=== PATIENT | female | born 1990 | race Caucasian/White ===

== ENCOUNTER 2018-03-22 12:34 | Inpatient (IN) | payer BC, OTHER ==
[2018-03-23] MEDS ORDERED: HYDROcodone/Acetaminophen 5/325 mg Tablet PO PRN ×3 (03:36→18:06)
[2018-03-23] MEDS ORDERED: Misoprostol 200 MCG TAB PR PRN (03:36)
[2018-03-23] MEDS ORDERED: Carboprost 250 MCG/ML AMP IM PRN (03:36)
[2018-03-23] MEDS ORDERED: Diphenoxylate HCl/Atropine Tablet PO PRN (03:36)
[2018-03-23] MEDS ORDERED: Acetaminophen 500 MG TAB PO PRN (03:36)
[2018-03-23] MEDS ORDERED: Lidocaine 1% (PF) 30 ML VIAL SC PRN (03:36)
[2018-03-23] MEDS ORDERED: Ibuprofen 800 MG TAB PO PRN (03:36)
[2018-03-23] MEDS ORDERED: Promethazine HCl 25 MG/ML VIAL IM PRN (03:36)
[2018-03-23] MEDS ORDERED: Ondansetron HCl/PF 4 MG/2 ML Vial IVP PRN ×2 (03:36→18:06)
[2018-03-23] MEDS ORDERED: NS w/ Oxytocin 10 units 500 ML IV SCH (03:36)
[2018-03-23] MEDS ORDERED: NS / Oxytocin 40 units/1000ml 1,000 ML IV PRN (03:36)
[2018-03-23] MEDS ORDERED: Methylergonovine 0.2 MG/ML VIAL IM PRN (03:36)
[2018-03-23 04:19] VITALS: BMI 32.4
[2018-03-23] MEDS: Lactated Ringer's 1,000 ML IV SCH ×3 (04:50→14:05)
[2018-03-23 05:29] LABS: Hemoglobin 12.7 g/dL (12.0-16.0); Mean Corpuscular HGB CONC 35.6 g/dL (32.0-36.0); Mean Corpuscular Hemoglobin 31.6 pg (27.0-31.0); Mean Corpuscular Volume 88.7 fL (78.0-98.0); Mean Platelet Volume 6.9 fL (7.4-10.4); Platelet Count 330 thou/uL (130-400); RBC Distribution Width 13.7 % (11.5-14.5); Red Blood Cell (RBC) Count 4.02 mill/uL (4.20-5.40); White Blood Cell (WBC) Count 12.2 thou/uL (4.8-10.8)
[2018-03-23] MEDS: Misoprostol 100 MCG TAB VAG SCH ×5 (05:42→17:06)
[2018-03-23 06:01] LABS: Syphilis Antibody Nonreactive (Nonreactive); Syphilis Antibody Index 0.04 S/CO (<1.00 Non-Reactive)
[2018-03-23 06:02] LABS: HBSAg Index 0.17 S/CO (0-0.99); Hep B Surf Ag Non-Reactive S/CO (NonReactive)
--- NOTE | 2018-03-23 07:55 | PDOC.LDHP ---
Labor and Delivery H&P Chief complaint: scheduled induction HPI: 28yo at 39w4d by LMP for elective IOL, s/p cytotec x 1, not having painful ctx. Current gestational age (weeks): 39 Due date: 03/26/18 Dating criteria: last menstrual period Grav: 3 Para: 1 Current complications: none Abnormal US findings: No Past Medical History: hypothyroid on meds Current medications: pre-virgen vitamins, other (levothyroxine) Previous surgical history: none Allergies/Adverse Reactions: Allergies Allergy/AdvReac Type Severity Reaction Status Date / Time No Known Drug Allergies Allergy Verified 03/23/18 04:06 Social history: none - Physical Exam Vital signs reviewed and normal: yes General: NAD Heart: RRR Lungs: CTAB Abdomen: gravid Extremeties: no edema FHT: category 1 [place] contractions every: rare - Vaginal Exam cm dilated: 2 Effacement: 75% Station: -2 (arom clear) - OB Labs Blood type: A RH: negative Antibody Screen: positive (anti d) HIV: negative RPR: negative HEPSAg: negative 1 hour GCT: negative GBS: negative Urine drug screen: negative Rubella: immune - Assessment L&D Assessment: elective induction at term - Plan Plan: admit to L&D, labor augmentation if indicated, informed consent obtained, anesthesia consult for pain management
[2018-03-23] MEDS ORDERED: Bupivacaine/Epinephrine 0.25% 30 ML VIAL ONE (09:00)
[2018-03-23] MEDS: Butorphanol Tartrate 1 MG/ML VIAL SLOW IVP PRN ×2 (09:47→11:00)
[2018-03-23] MEDS ORDERED: DISCONTINUE ALL PREVIOUS NARCOTICS FS SCH (12:15)
[2018-03-23] MEDS ORDERED: Bupivacaine 0.5% 20 ML, fentaNYL Citrate/PF 400 MCG in Sodium Chloride 0.9% 72 ML EPIDURAL SCH (12:15)
[2018-03-23] MEDS ORDERED: Lactated Ringer's 500 ML IV PRN (13:37)
[2018-03-23] MEDS ORDERED: ePHEDrine/0.9% NaCl/PF SYRINGE 50 mg/10 ml SLOW IVP PRN (13:37)
[2018-03-23] MEDS ORDERED: Naloxone HCl 0.4 mg/ml Vial IVP PRN ×2 (13:37)
[2018-03-23] MEDS ORDERED: Eucerin (Mineral Oil/Petrolatum,White) 30 gm Jar TOP PRN (13:37)
[2018-03-23] MEDS ORDERED: Communication Order-Pharmacy FS SCH (13:45)
[2018-03-23] MEDS ORDERED: fentaNYL Citrate/PF 400 MCG, Bupivacaine 0.5% 20 ML in Sodium Chloride 0.9% 72 ML EPIDURAL SCH (13:45)
--- NOTE | 2018-03-23 16:58 | PDOC.OPDEL ---
OB Operative/Delivery Note Delivery Dr/Surgeon: Sanchez Assist: n/a Pre-Delivery Diagnosis: elective induction Procedure/Post Delivery Dx: spontaneous vaginal delivery Weeks gestation: 39 Anesthesia: epidural - Findings A Sex: male - 1 min: 8 - 5 min: 9 - Additional Findings/Plan Placenta delivered: spontaneous Repaired Obstetrical Laceration: none Estimated blood loss: 200 qbl pending Compilations/Other Findings: NC x 1 tight delivered through Post delivery plan: routine recovery
[2018-03-23] MEDS ORDERED: Preparation H Ointment 28 GM TUBE PR PRN (18:06)
[2018-03-23] MEDS ORDERED: Milk Of Magnesia 30 ML UDCUP PO PRN (18:06)
[2018-03-23] MEDS ORDERED: diphenhydrAMINE 25 MG CAP PO PRN (18:06)
[2018-03-23] MEDS ORDERED: NS / Oxytocin 40 units/1000ml 1,000 ML IV SCH (18:06)
[2018-03-23] MEDS ORDERED: Lanolin Ointment 7 GM TUBE TOP PRN (18:06)
[2018-03-23] MEDS ORDERED: Bisacodyl 10 MG SUPP PR PRN (18:06)
[2018-03-23] MEDS ORDERED: Benzocaine/Menthol 20-0.5% 60 ML CAN TOP PRN (18:06)
[2018-03-23] MEDS ORDERED: Methylergonovine 0.2 MG/ML VIAL ONE (18:27)
[2018-03-23] MEDS ORDERED: Ibuprofen 800 MG TAB PO SCH ×2 (20:00→22:00)
[2018-03-23] MEDS: Ibuprofen 800 MG TAB PO SCH (20:25)
[2018-03-23] MEDS: Docusate Calcium (SURFAK) 240 MG CAP PO SCH (21:37)
--- NOTE | 2018-03-24 02:11 | PDOC.PP ---
Post Progress Note Post Day #: 1 Subjective: Doing well PO intake tolerated: yes Flatus: yes Ambulation: yes Vital Signs (12 hours) Temp Pulse Resp BP Pulse Ox 03/24/18 00:32 98.6 F 74 18 116/74 99 03/23/18 22:33 98.1 F 67 20 115/67 99 03/23/18 21:38 98.1 F 73 18 102/62 97 03/23/18 20:35 97.7 F 72 20 100/64 98 Weight Weight 183 lb - Physical Examination General: NAD Cardiovascular: no m/r/g Respiratory: clear to auscultation bilaterally Abdominal: + bowel sounds, lochia, no distention, appropriately TTP Extremities: negative homans (B) Neurological: no gross focal deficits Psychiatric: A&Ox3, normal affect Result Diagrams: 03/23/18 04:50 Additional Labs: Post Labs Blood Type A NEGATIVE 03/23/18 04:50 Hep Bs Antigen Non-Reactive S/CO (NonReactive) 03/23/18 04:50 (1) Hypothyroidism affecting in third trimester Code(s): O99.283 - ENDO, NUTRITIONAL AND METAB DISEASES COMP PREG, THIRD TRI; E03.9 - HYPOTHYROIDISM, UNSPECIFIED Status: Acute (2) Term delivered Code(s): O80 - ENCOUNTER FOR FULL-TERM UNCOMPLICATED DELIVERY Status: Acute - Assessment/Plan PPD 1 s/p doing well. has thyroid medication with her for her hypothyroidism...ok to continue. Patient ok with observation today until PPD2. BPs ok.
[2018-03-24] MEDS: Ibuprofen 800 MG TAB PO SCH ×3 (04:13→21:46)
[2018-03-24] MEDS: Levothyroxine 175 MCG TAB PO SCH (06:23)
[2018-03-24] MEDS ORDERED: Adacel (T-DAP) 0.5 ML VIAL IM ONE (09:00)
[2018-03-24] MEDS: Ferrous Sulfate 325 MG TAB PO SCH ×2 (09:01→14:07)
[2018-03-24] MEDS: Prenatal Vitamin 1 TAB PO SCH (09:55)
[2018-03-24] MEDS: Docusate Calcium (SURFAK) 240 MG CAP PO SCH ×2 (09:55→21:46)
[2018-03-24 21:56] VITALS: BP 103/54; TEMP 98.2
[2018-03-25] MEDS: Ibuprofen 800 MG TAB PO SCH (06:14)
[2018-03-25] MEDS: Levothyroxine 175 MCG TAB PO SCH (06:15)
[2018-03-25] MEDS: Prenatal Vitamin 1 TAB PO SCH (08:47)
[2018-03-25] MEDS: Ferrous Sulfate 325 MG TAB PO SCH (08:47)
[2018-03-25] MEDS: Docusate Calcium (SURFAK) 240 MG CAP PO SCH (08:48)
--- NOTE | 2018-03-25 10:33 | DIS ---
DATE OF ADMISSION: 03/23/2018 DATE OF DISCHARGE: 03/27/2018 ADMITTING DIAGNOSIS: Elective induction of labor. DISCHARGE DIAGNOSIS: Elective induction of labor. PROCEDURE: Term spontaneous vaginal delivery. HOSPITAL COURSE: The patient is a 28-year-old female, who presented to labor and delivery at 3 9 weeks and 4 days for an elective induction of labor. Her labor course resulted in an uncomplicated term spontaneous vaginal delivery. For complete details, please refer to the delivery note. Her po stpartum course has been uncomplicated. Today is day #2, the patient reports this morning that she is eating, tolerating p.o., voiding on her own, having decreased lochia and good pain contr ol. Most recent vital signs has a temperature of 98.2, pulse of 83, respiratory rate of 18, satting 97% on room air and has a blood pressure of 103/54. The patient will be discharged to home with ibup rofen for pain control. She has instructions to follow up with her primary OB, Dr. Bradford in 6 week s. She also has instructions to seek medical attention sooner if she experiences fever, increasing p ain, or bleeding.
== END 2018-03-25 12:25 | disposition home or self-care (01) | DRG 775 ==
LOC: L&D 03-23 03:28 → 3SW 03-23 20:48
PROVIDERS: ADMIT Student in an Organized Health Care Education/Training Program; ATTEND Student in an Organized Health Care Education/Training Program
PROC: 10E0XZZ Delivery of Products of Conception, External Approach (ICD-10-PCS; principal; 2018-03-23)
DX: O69.81X0 Labor and delivery complicated by cord around neck, without compression, not applicable or unspecified (principal); Z3A.39 39 weeks gestation of pregnancy; Z37.0 Single live birth; O99.284 Endocrine, nutritional and metabolic diseases complicating childbirth; E03.9 Hypothyroidism, unspecified
CPT/HCPCS: 36415; 51702; 85027; 85461; 86780; 86850; 86870; 86900; 86901; 87340; 90384; 96372; J0595; J2001; J2210; J2405; J3010; J3490; J7050

== ENCOUNTER 2019-06-17 05:30 | Inpatient (IN) | payer BC ==
[2019-06-17 08:22] VITALS: BMI 33.6
[2019-06-17] MEDS ORDERED: Acetaminophen 500 MG TAB PO PRN (08:25)
[2019-06-17] MEDS ORDERED: Diphenoxylate HCl/Atropine Tablet PO PRN (08:25)
[2019-06-17] MEDS ORDERED: Lidocaine 1% (PF) 30 ML VIAL SC PRN (08:25)
[2019-06-17] MEDS ORDERED: hydrALAZINE 20 MG/ML VIAL SLOW IVP PRN (08:25)
[2019-06-17] MEDS ORDERED: Ibuprofen 800 MG TAB PO PRN (08:25)
[2019-06-17] MEDS ORDERED: Methylergonovine 0.2 MG/ML VIAL IM PRN (08:25)
[2019-06-17] MEDS ORDERED: Misoprostol 200 MCG TAB PR PRN (08:25)
[2019-06-17] MEDS ORDERED: Carboprost 250 MCG/ML AMP IM PRN (08:25)
[2019-06-17] MEDS ORDERED: Promethazine HCl 25 MG/ML VIAL IM PRN ×2 (08:25→15:10)
[2019-06-17] MEDS ORDERED: NS / Oxytocin 40 units/1000ml 1,000 ML IV PRN (08:25)
[2019-06-17] MEDS ORDERED: NS w/ Oxytocin 10 units 500 ML IV SCH (08:25)
[2019-06-17] MEDS ORDERED: Ondansetron PF 4 MG/2 ML Vial IVP PRN ×2 (08:25→15:10)
[2019-06-17] MEDS ORDERED: HYDROcodone/Acetaminophen 5/325 mg Tablet PO PRN (08:25)
[2019-06-17] MEDS ORDERED: Butorphanol Tartrate 1 MG/ML VIAL SLOW IVP PRN (08:25)
[2019-06-17 08:43] LABS: Hemoglobin 12.8 g/dL (12.0-16.0); Mean Corpuscular HGB CONC 34.8 g/dL (32.0-36.0); Mean Corpuscular Volume 88.9 fL (78.0-98.0); Mean Platelet Volume 6.3 fL (7.4-10.4); Platelet Count 335 thou/uL (130-400); Red Blood Cell (RBC) Count 4.14 mill/uL (4.20-5.40); White Blood Cell (WBC) Count 12.6 thou/uL (4.8-10.8)
[2019-06-17 09:27] LABS: HBSAg Index 0.32 S/CO (0-0.99); Hep B Surf Ag Non-Reactive S/CO (NonReactive); Syphilis Antibody Nonreactive (Nonreactive); Syphilis Antibody Index 0.05 S/CO (<1.00 Non-Reactive)
[2019-06-17] MEDS ORDERED: ePHEDrine/0.9% NaCl/PF SYRINGE 50 mg/10 ml ONE (10:42)
[2019-06-17] MEDS ORDERED: Bupivacaine 0.25% HCL 30 ML VIAL ONE (10:42)
--- NOTE | 2019-06-17 12:43 | PDOC.LDHP ---
Labor and Delivery H&P Chief complaint: scheduled induction HPI: 29yo at 39w2d by LMP here for elective IOL. s/p AROM earlier this am, clear fluid. Some minimal variability on tracing. Current gestational age (weeks): 39 Due date: 06/22/19 Dating criteria: last menstrual period Grav: 4 Para: 2 Current complications: none Abnormal US findings: No Past Medical History: hypothyroidsm Current medications: pre-virgen vitamins, other (levoth) Previous surgical history: other (tonsills) Allergies/Adverse Reactions: Allergies Allergy/AdvReac Type Severity Reaction Status Date / Time No Known Drug Allergies Allergy Verified 03/23/18 04:06 Social history: none - Physical Exam Vital signs reviewed and normal: yes General: NAD Heart: RRR Lungs: CTAB Abdomen: gravid Extremeties: no edema FHT: category 2, absent or minimal variables [place] contractions every: 3-4min - Vaginal Exam cm dilated: 4 Effacement: 75% Station: -2 - OB Labs Blood type: A RH: negative Antibody Screen: positive HIV: negative RPR: negative HEPSAg: negative 1 hour GCT: negative GBS: negative Urine drug screen: negative Rubella: immune - Assessment L&D Assessment: elective induction at term - Plan Plan: admit to L&D, labor augmentation if indicated, informed consent obtained, anesthesia consult for pain management, other (resuscitation for minimal variability, no decels, intermittent accels noted.)
[2019-06-17] MEDS ORDERED: Fentanyl 4 mcg/Bup 0.1% Cadd 100 ML ONE (14:15)
[2019-06-17] MEDS: Lactated Ringer's 1,000 ML IV SCH ×2 (15:00→18:12)
[2019-06-17] MEDS ORDERED: Acetaminophen 325 MG TAB PO PRN (15:10)
[2019-06-17] MEDS ORDERED: Lactated Ringer's 500 ML IV PRN (15:10)
[2019-06-17] MEDS ORDERED: Naloxone HCl 0.4 mg/ml Vial IVP PRN ×2 (15:10)
[2019-06-17] MEDS ORDERED: ePHEDrine/0.9% NaCl/PF SYRINGE 50 mg/10 ml SLOW IVP PRN (15:10)
[2019-06-17] MEDS ORDERED: diphenhydrAMINE 50 MG/ML VIAL IVP PRN (15:10)
[2019-06-17] MEDS ORDERED: Fentanyl 4 mcg/Bupivacaine 0.1% Cassette 100 ML EPIDURAL SCH (15:15)
[2019-06-17] MEDS ORDERED: Communication Order-Pharmacy FS SCH (15:15)
--- NOTE | 2019-06-17 20:58 | PDOC.LDPN ---
Labor & Delivery Progress Note - Subjective Subjective: comfortable - Objective Vital signs reviewed and normal: yes General: NAD Uterine fundus: non tender Dilation: 6 Effacement: 75% Station: -2 FHT: category 2, absent or minimal variables (, decel to 50s x3 min during sve/ scalp stim) [place] contractions every: 4min Resuscitative measures: maternal oxygen, maternal IV fluids, maternal position change Plan: resuscitative measures
[2019-06-17] MEDS ORDERED: NS / Oxytocin 40 units/1000ml 1,000 ML ONE (22:19)
[2019-06-17] MEDS ORDERED: Lidocaine 1% (PF) 30 ML VIAL ONE (22:19)
--- NOTE | 2019-06-17 22:57 | PDOC.OPDEL ---
OB Operative/Delivery Note Delivery Dr/Surgeon: Sanchez Assist: n/a Pre-Delivery Diagnosis: elective induction Procedure/Post Delivery Dx: spontaneous vaginal delivery Weeks gestation: 39 Anesthesia: epidural - Findings A Sex: female - Additional Findings/Plan Placenta delivered: spontaneous Repaired Obstetrical Laceration: none Estimated blood loss: 500 Compilations/Other Findings: NC x 1 tight Post delivery plan: routine recovery
[2019-06-18] MEDS ORDERED: hydrALAZINE 20 MG/ML VIAL SLOW IVP PRN (01:13)
[2019-06-18] MEDS ORDERED: NS / Oxytocin 40 units/1000ml 1,000 ML IV SCH (01:13)
[2019-06-18] MEDS ORDERED: Preparation H Ointment 28 GM TUBE PR PRN (01:13)
[2019-06-18] MEDS ORDERED: Lanolin Ointment 7 GM TUBE TOP PRN (01:13)
[2019-06-18] MEDS ORDERED: Adacel (T-DAP) 0.5 ML SYRINGE IM ONE (01:13)
[2019-06-18] MEDS ORDERED: Ondansetron PF 4 MG/2 ML Vial IVP PRN (01:13)
[2019-06-18] MEDS ORDERED: Milk Of Magnesia 30 ML UDCUP PO PRN (01:13)
[2019-06-18] MEDS ORDERED: HYDROcodone/Acetaminophen 5/325 mg Tablet PO PRN (01:13)
[2019-06-18] MEDS ORDERED: Bisacodyl 10 MG SUPP PR PRN (01:13)
[2019-06-18] MEDS ORDERED: Benzocaine-Menthol 82.5 ML CAN TOP PRN (01:13)
[2019-06-18] MEDS ORDERED: diphenhydrAMINE 25 MG CAP PO PRN (01:13)
[2019-06-18] MEDS: Lactated Ringer's 1,000 ML IV SCH (02:03)
[2019-06-18] MEDS: Ibuprofen 800 MG TAB PO SCH ×3 (04:57→21:48)
[2019-06-18] MEDS: Ferrous Sulfate 325 MG TAB PO SCH ×2 (08:29→17:36)
[2019-06-18] MEDS: Prenatal Vitamin 1 TAB PO SCH (09:19)
[2019-06-18] MEDS: Docusate Calcium (SURFAK) 240 MG CAP PO SCH ×2 (09:19→21:47)
[2019-06-18] MEDS ORDERED: Ondansetron ODT 4 MG TAB SL PRN (15:03)
[2019-06-18] MEDS: HYDROcodone/Acetaminophen 5/325 mg Tablet PO PRN ×2 (15:27→20:24)
--- NOTE | 2019-06-18 16:07 | PDOC.PP ---
Post Progress Note Post Day #: 1 PO intake tolerated: yes Flatus: yes Ambulation: yes Vital Signs (12 hours) Temp Pulse Resp BP Pulse Ox 06/18/19 11:57 98.4 F 75 2 L 107/53 L 06/18/19 08:23 98.2 F 71 20 105/52 L 98 06/18/19 04:57 98.3 F 75 18 103/56 L Weight Weight 190 lb - Physical Examination General: NAD Respiratory: non-labored breathing Abdominal: no distention, appropriately TTP Fundus firm & at: umb Skin: no rash Neurological: no gross focal deficits Psychiatric: normal affect Result Diagrams: 06/17/19 08:35 Additional Labs: Post Labs Blood Type A NEGATIVE 06/17/19 08:35 Hep Bs Antigen Non-Reactive S/CO (NonReactive) 06/17/19 08:35 - Assessment/Plan PPD1 s/p TSVD VSSAF Doing well lochia< menses Rh neg for rhogam screening, RImm Cont PP care, home tomorrow.
[2019-06-19] MEDS: Ibuprofen 800 MG TAB PO SCH ×2 (05:04→14:22)
[2019-06-19 07:56] VITALS: BP 92/51; TEMP 98.6
--- NOTE | 2019-06-19 08:44 | PDOC.PP ---
Post Progress Note Post Day #: 2 Subjective: Pt doing well this am. Minimal lochia. Pt breast feeding with good latch. She is urinating well. No pain or concerns at this time. PO intake tolerated: yes Flatus: yes Ambulation: yes Vital Signs (12 hours) Temp Pulse Resp BP Pulse Ox 06/19/19 07:56 98.6 F 64 20 92/51 L 97 Weight Weight 190 lb - Physical Examination General: NAD Respiratory: non-labored breathing Abdominal: + bowel sounds, lochia, no distention, appropriately TTP Fundus firm & at: 2 cm below umbilicus Extremities: negative homans (B) Skin: no rash Neurological: no gross focal deficits Psychiatric: A&Ox3, normal affect Result Diagrams: 06/17/19 08:35 Additional Labs: Post Labs Blood Type A NEGATIVE 06/17/19 08:35 Hep Bs Antigen Non-Reactive S/CO (NonReactive) 06/17/19 08:35 (1) Term delivered Code(s): O80 - ENCOUNTER FOR FULL-TERM UNCOMPLICATED DELIVERY Status: Acute - Assessment/Plan PPD2 s/p TSVD VSSAF Doing well lochia with minimal lochia well. Rh neg for rhogam screening, RImm Plan for d/c this am. Pt to f/u with our office in 6 weeks. Discharge planning discussed with patient.
[2019-06-19] MEDS: Ferrous Sulfate 325 MG TAB PO SCH (08:59)
[2019-06-19] MEDS: Docusate Calcium (SURFAK) 240 MG CAP PO SCH (09:20)
[2019-06-19] MEDS: Prenatal Vitamin 1 TAB PO SCH (09:20)
== END 2019-06-19 14:45 | disposition home or self-care (01) | DRG 807 ==
LOC: L&D 07:19 → 3SW 06-18 01:46
PROVIDERS: ADMIT Student in an Organized Health Care Education/Training Program; ATTEND Student in an Organized Health Care Education/Training Program
PROC: 10E0XZZ Delivery of Products of Conception, External Approach (ICD-10-PCS; principal; 2019-06-17)
PROC: 10907ZC Drainage of Amniotic Fluid, Therapeutic from Products of Conception, Via Natural or Artificial Opening (ICD-10-PCS; 2019-06-17)
PROC: 3E033VJ Introduction of Other Hormone into Peripheral Vein, Percutaneous Approach (ICD-10-PCS; 2019-06-17)
DX: O76 Abnormality in fetal heart rate and rhythm complicating labor and delivery (principal); Z37.0 Single live birth; Z3A.39 39 weeks gestation of pregnancy; O99.284 Endocrine, nutritional and metabolic diseases complicating childbirth; E03.9 Hypothyroidism, unspecified; O69.1XX0 Labor and delivery complicated by cord around neck, with compression, not applicable or unspecified; Z79.899 Other long term (current) drug therapy; Z79.890 Hormone replacement therapy
CPT/HCPCS: 36415; 51702; 85027; 86780; 86850; 86870; 86900; 86901; 87340; J2001; J2405; J2590; Q0162; S0020

== ENCOUNTER 2020-09-10 04:56 | Emergency (ER) | payer BC ==
[2020-09-10 05:58] LABS: Bacteria/HPF None Seen HPF (None Seen); Bilirubin Negative (Negative); Blood, Urine Negative (Negative); Clarity Clear (Clear); Glucose, Urine (Dipstick) Normal (Negative); Ketone, Urine Negative (Negative); Leukocyte Negative Leu/uL (Negative); Nitrite Negative (Negative); Protein, Urine (Dipstick) 30 mg/dL (Neg-Trace); RBC/HPF 0-3 HPF (0-3); Specific Gravity, Urine 1.033 (1.002-1.036); Squamous Epithelial 0-3 HPF (0-3); Urobilinogen Normal mg/dL (Less than 2); WBC/HPF 0-3 HPF (0-3)
[2020-09-10 05:59] LABS: Mucous/LPF Rare LPF (<2+)
[2020-09-10 06:25] LABS: #Eosinphils 0.4 thou/uL (0.0-0.7); #Lymphocytes 2.4 thou/uL (1.20-3.40); #Monocytes 0.8 thou/uL (0.11-0.59); #Neutrophils 5.9 thou/uL (1.40-6.50); %Basophils 0.5 % (0.0-1.0); %Eosinophils 3.8 % (0.0-10.0); %Lymphocytes 25.3 % (21.0-51.0); %Monocytes 8.9 % (0.0-10.0); %Neutrophils 61.6 % (42.0-75.0); Hemoglobin 12.6 g/dL (12.0-16.0); Mean Corpuscular HGB CONC 32.3 g/dL (32.0-36.0); Mean Corpuscular Hemoglobin 28.8 pg (27.0-31.0); Mean Corpuscular Volume 89.2 fL (78.0-98.0); Mean Platelet Volume 6.4 fL (7.4-10.4); Platelet Count 308 thou/uL (130-400); RBC Distribution Width 12.9 % (11.5-14.5); Red Blood Cell (RBC) Count 4.38 mill/uL (4.20-5.40); White Blood Cell (WBC) Count 9.5 thou/uL (4.8-10.8)
[2020-09-10 06:40] LABS: BHCG - Serum POSITIVE (NEGATIVE); Pregs Control Background? CLEAR/WHITE (CLR/WHITE); Pregs Control Bar Appear? YES (CONTROL BAR)
[2020-09-10 06:56] LABS: ALT (SGPT) 43 U/L (8-55); AST (SGOT) 25 U/L (5-34); Albumin 4.3 g/dL (3.5-5.0); Alkaline Phosphatase 50 U/L (40-110); Anion Gap 13 mmol/L (10-20); BUN (Urea Nitrogen) 10 mg/dL (7.0-18.7); Bilirubin, Total 0.3 mg/dL (0.2-1.2); Calc. Creatinine Clearance 0 mL/min (70-130); Carbon Dioxide 21 mmol/L (22-29); Chloride 106 mmol/L (98-107); Globulin 2.9 g/dL (2.4-3.5); Glucose 105 mg/dL (70-105); Lipase 13 U/L (8-78); Protein, Total 7.2 g/dL (6.0-8.3); Sodium 136 mmol/L (136-145)
--- NOTE | 2020-09-10 09:00 | ULT ---
PRELIMINARY REPORT/[facility]/EMERGENCY AFTER HOURS PROCEDURE: EXAM: US Pelvis, Complete. CLINICAL HISTORY: RLQ pain that radiates to back. nausea TECHNIQUE: Transvaginal and transabdominal pelvic ultrasound (complete) with image documentation. COMPARISON: None FINDINGS: Anteverted uterus measures 8.5 x 4.8 x 6.8 cm. Myometrium is within normal limits. Examination is 6 m m. There is trace free fluid in the dependent pelvis extending to the right adnexa. The ovaries are normal in size and echotexture and demonstrate normal color and spectral Doppler eval uation. Small follicles/functional cysts in both ovaries measure less than 2 cm. The right ovary ashwini ures 3.7 x 1.9 x 1.5 cm. The left ovary measures 4.1 x 2 x 2.9 cm. IMPRESSION: No findings of ovarian torsion. Small follicles in both ovaries measuring less than 2 cm. Trace free fluid in the pelvis is most likely physiologic. ELECTRONICALLY SIGNED BY: Juan Carlos Mcdonald MD Sep 10, 2020 6:16:41 AM [employer] This report is intended for review by the ordering physician only, in accordance of law. If you recei ve this report in error, please call [facility] at [phone]. FINAL REPORT EMERGENCY AFTER HOURS PELVIC ULTRASOUND: TECHNIQUE: Multiplanar Brandt scale and color Doppler images were obtained in a transabdominal and transvaginal pe lvic ultrasound. Spectral analysis of the Doppler waveforms of the ovaries performed. FINDINGS/IMPRESSION: I agree with the findings and impression given in the preliminary report per [facility] physici an. No evidence of ovarian torsion. No focal abnormality is identified. POS: ARIELA
== END 2020-09-10 06:53 | disposition home or self-care (01) ==
LOC: ERS 04:56
DX: O26.851 Spotting complicating pregnancy, first trimester (principal); O99.281 Endocrine, nutritional and metabolic diseases complicating pregnancy, first trimester; E03.9 Hypothyroidism, unspecified; Z79.899 Other long term (current) drug therapy
CPT/HCPCS: 36415; 76856; 80053; 81003; 81015; 83690; 84702; 84703; 85025; 86900; 86901; 90384; 96372